=== PATIENT | male | born 1950 | race Caucasian/White ===

== ENCOUNTER 2021-02-25 09:57 | Outpatient (CLI) | payer MEDICARE, OTHER ==
[2021-02-25 17:49] LABS: SARS-CoV-2 PCR by NAA Not Detected (NotDetected)
== END 2021-02-25 09:58 | disposition home or self-care (01) ==
LOC: LABBT 09:57
PROVIDERS: ATTEND Neurological Surgery
DX: Z01.812 Encounter for preprocedural laboratory examination (principal); Z20.822 Contact with and (suspected) exposure to COVID-19; M48.061 Spinal stenosis, lumbar region without neurogenic claudication
CPT/HCPCS: U0003; U0005; 87635

== ENCOUNTER 2021-03-02 05:55 | Day surgery (SDC) | payer MEDICARE, OTHER ==
[2021-02-28 14:31] VITALS: BMI 29.2
[2021-03-02] MEDS ORDERED: EPINEPHrine 1 MG/ML AMP ONE (06:29)
[2021-03-02] MEDS ORDERED: Thrombin 5000 UNITS/5 ML VIAL ONE (06:29)
[2021-03-02] MEDS ORDERED: Bupivacaine PF 0.5% 30 ML VIAL ONE (06:29)
[2021-03-02] MEDS ORDERED: Midazolam HCl 2 mg/2 ml Vial ONE (06:40)
[2021-03-02] MEDS ORDERED: Fentanyl 250 MCG/5 ML VIAL ONE (06:41)
[2021-03-02] MEDS ORDERED: Ondansetron PF 4 MG/2 ML Vial ONE (07:06)
[2021-03-02] MEDS ORDERED: PROPOFOL 200 MG/20 ML VIAL ONE (07:06)
[2021-03-02] MEDS ORDERED: Lidocaine 1% PF 5 ML VIAL ONE (07:06)
[2021-03-02] MEDS ORDERED: Rocuronium Bromide 10 MG/ML (10ML VIAL) ONE (07:06)
[2021-03-02] MEDS ORDERED: Ketorolac Tromethamine 30 MG/ML VIAL ONE (07:06)
[2021-03-02] MEDS ORDERED: Dexamethasone 20 MG/5 ML VIAL ONE (07:06)
[2021-03-02] MEDS ORDERED: ePHEDrine Sulfate 50 MG/10 ML VIAL ONE (07:06)
[2021-03-02] MEDS ORDERED: SUGAMMADEX SODIUM 200 MG/2 ML VIAL ONE (08:34)
[2021-03-02] MEDS ORDERED: Tamsulosin HCl 0.4 MG CAP ONE (09:22)
[2021-03-02] MEDS ORDERED: HYDROcodone/Acetaminophen 5/325 mg Tablet ONE (10:04)
== END 2021-03-02 12:40 | disposition home or self-care (01) ==
LOC: SDC 05:55
PROVIDERS: ATTEND Neurological Surgery
PROC: 01NB0ZZ Release Lumbar Nerve, Open Approach (ICD-10-PCS; principal; 2021-03-02)
DX: M48.062 Spinal stenosis, lumbar region with neurogenic claudication (principal); M54.16 Radiculopathy, lumbar region; E78.5 Hyperlipidemia, unspecified; E03.9 Hypothyroidism, unspecified; F17.210 Nicotine dependence, cigarettes, uncomplicated; M19.90 Unspecified osteoarthritis, unspecified site; G89.29 Other chronic pain; Z85.46 Personal history of malignant neoplasm of prostate; Z79.82 Long term (current) use of aspirin; Z79.899 Other long term (current) drug therapy
CPT/HCPCS: 76000; 93005; 93010; J0171; J0690; J1100; J1885; J2250; J2405; J2704; J3010; S0020